=== PATIENT | male | born 1975 | race Caucasian/White ===

== ENCOUNTER 2020-04-22 09:51 | Outpatient (RCR) | payer OTHER, SELFPAY | END 2020-04-22 23:59 | disposition home or self-care (01) | LOC: ANHAUDIO 09:51 | PROVIDERS: PCP Family Medicine; Visit Provider Family Medicine | DX: Z46.1 Encounter for fitting and adjustment of hearing aid (principal) | CPT/HCPCS: 99199 ==

== ENCOUNTER 2023-02-06 11:38 | Emergency (ER) | payer MEDICARE, MEDICAID, SELFPAY ==
[2023-02-06] VITALS (65 sets, daily range): BP systolic 74–118; BP diastolic 48–100; PULSE 85–115; RESP 14–26; TEMP 36.3; O2SAT 91–100
--- NOTE | ~2023-02-06 | XR_ITS ---
EXAMINATION: XR chest port-a-cath/central Exam Date/Time: 02/06/2023 14:55 CDT HISTORY: status post CENTRAL line placement. Comparison: 10/22/2010 Right IJ central line terminating in the SVC. RESULT: Lines, tubes, and devices: None. Lungs and pleura: Clear. Cardiomediastinal silhouette: Stable. Other: No acute osseous or upper abdominal finding. IMPRESSION: No acute cardiopulmonary process. Reviewed, dictated and finalized at location K.
--- NOTE | ~2023-02-06 | CT_ITS ---
EXAMINATION: CT abdomen pelvis wo con DATE: 02/06/2023 15:25 INDICATION: Postoperative bleeding TECHNIQUE: Computed tomography (CT) of the abdomen and pelvis was performed without intravenous contr ast. Automated exposure control and iterative reconstruction technique were employed. The dose-length product was 1754.28 mGy-cm. COMPARISON: 01/22/2012 FINDINGS: Mild discoid atelectasis at the left lower lobe. Heart size is normal. No pericardial or pleural effu jeronimo. Cholecystectomy clips the gallbladder fossa. Liver, spleen, pancreas and bilateral adrenal glan ds are normal. Bilateral renal cysts the largest on the right measuring 6.3 cm . Bowels including the appendix are normal. Bladder is normal. No free intraperitoneal gas or fluid. No pathologically enla rged abdominal or pelvic lymphadenopathy. Postoperative changes along the anterior lower abdominal wa ll. There are bilateral surgical drains extending from left to right and from right to left across th e operative bed. There is a large relatively high attenuation hematoma along with a few scattered foc i of subcutaneous gas situated in the deep subcutaneous tissues. This measures approximately 45 cm fr om right to left and measures up to 17 x 5.8 cm in maximal orthogonal dimensions measured on the sagi ttal images. The inferior vena cava and bilateral common iliac veins appear flattened consistent with hypovolemia. Mild to moderate thoracolumbar spondylosis. IMPRESSION: 1. Large hematoma extending along the deep lower anterior abdominal wall where there are couple surgi ronna drains and changes consistent with prior panniculectomy. 2. Flattening of the inferior vena cava and bilateral common iliac veins suggestive of secondary hypo volemia. Reviewed, dictated and finalized at location A. IMPRESSION: 1. Large hematoma extending along the deep lower anterior abdominal wall where there are couple surgical drains and changes consistent with prior panniculecto my. 2. Flattening of the inferior vena cava and bilateral common iliac veins sugges tive of secondary hypovolemia.
--- NOTE | 2023-02-06 11:52 | ECG_ITS ---
Measurements Intervals [place] Rate: 81 P: 46 NE: 132 QRS: 62 QRSD: 97 T: 52 QT: 340 QTc: 396 Interpretive Statements SINUS RHYTHM LOW QRS VOLTAGE IN PRECORDIAL LEADS [QRS DEFLECTION < 1.0 mV IN CHEST LEADS] NO PREVIOUS ECG AVAILABLE FOR COMPARISON Electronically Signed On 02-06-2023 19:30:22 CDT by Janett Jacobo M.D.
--- NOTE | 2023-02-06 11:52 | ED.GENADULT ---
HPI - General Adult General Chief complaint: Wound/Laceration Stated complaint: wound check/surgical Time Seen by Provider: 02/06/23 11:52 Source: patient Mode of arrival: ambulatory History of Present Illness HPI narrative: 47-year-old male with a history of hypertension, dyslipidemia, obesity had anterior abdominal wall panniculectomy at [facility] yesterday. Subsequently the patient has been having -- syncopal spells -- increased bleeding from the incision site in the anterior abdominal wall. -- Generalized weakness -- patient was noted to be hypotensive with systolic blood pressure in the 80s as per EMS. In the ER his blood pressure was noted to be 94/50. Onset (ago): day(s) ( syncopal spell started yesterday.) Associated symptoms: denies other symptoms, syncope and weakness Related Data Home Medications Medication Instructions Recorded Confirmed allopurinol 300 mg tablet 150 mg PO HS 02/06/23 02/06/23 allopurinol 300 mg tablet 300 mg PO DAILY 02/06/23 02/06/23 atorvastatin 80 mg tablet 80 mg PO HS 02/06/23 02/06/23 bupropion HCl 300 mg 24 hr tablet, 300 mg PO DAILY 02/06/23 02/06/23 extended release cholecalciferol (vitamin D3) 50 50 mcg PO DAILY 02/06/23 02/06/23 mcg (2,000 unit) tablet cyanocobalamin (vitamin B-12) 2,000 mcg PO DAILY 02/06/23 02/06/23 2,000 mcg tablet cyclobenzaprine 10 mg tablet 10 mg PO TID 02/06/23 02/06/23 duloxetine 60 mg capsule,delayed 80 mg PO DAILY 02/06/23 02/06/23 release furosemide 40 mg tablet 40 mg PO DAILY 02/06/23 02/06/23 gabapentin 600 mg tablet 1,200 mg PO BID 02/06/23 02/06/23 naproxen 500 mg tablet 500 mg PO BID 02/06/23 02/06/23 pantoprazole 40 mg tablet,delayed 80 mg PO DAILY 02/06/23 02/06/23 release topiramate 200 mg tablet 200 mg PO HS 02/06/23 02/06/23 Allergies Allergy/AdvReac Type Severity Reaction Status Date / Time HYDROCODONE BIT Allergy Unknown Uncoded 02/06/23 12:30 TRAMADOL HCL Allergy makes him Uncoded 02/06/23 12:30 mean Review of Systems Review of Systems: All systems reviewed & are unremarkable except as noted in HPI and below Constitutional: Constitutional: Reports as per HPI and Reports no additional constitutional complaints Eyes: Eyes: Reports as per HPI and Reports no additional eye complaints ENT: Reports system reviewed and no additional complaints, except as documented and Reports as per HPI Comments: Dry mucous membrane Cardiovascular: Cardiovascular: Reports as per HPI Respiratory: Respiratory: Reports as per HPI and Reports no additional respiratory complaints Gastrointestinal: Gastrointestinal: Reports as per HPI and Reports no additional gastrointestinal complaints Comments: bleeding from the edges of the wound in the anterior abdominal wall. Genitourinary: Genitourinary: Reports no additional male genitourinary complaints Musculoskeletal: Musculoskeletal: Reports no additional musculoskeletal complaints and Reports as per HPI Integumentary/Breasts: Skin/Breast: Reports system reviewed and no additional complaints, except as docu and Reports as per HPI Neurologic: Reports system reviewed and no additional complaints, except as documented and Reports as per HPI Psychiatric: Psychiatric: Reports no additional psychiatric complaints and Reports as per HPI Endocrine: Endocrine: Reports no additional endocrine complaints and Reports as per HPI Hematologic/Lymphatic: Hematologic/Lymphatic: Reports no additional hematologic/lymphatic complaints and Reports as per HPI Allergic/Immunologic: Allergic/Immunologic: Reports no additional allergic/immunologic complaints and Reports as per HPI PMF Past Medical History Medical History (Updated 02/06/23 @ 15:09 by Alden Ferris MD) Dyslipidemia Hypertension Obesity Surgical History Surgical History (Updated 02/06/23 @ 15:09 by Alden Ferris MD) S/P panniculectomy Exam Narrative: blood pressure is 94/50. Const: Ge
[2023-02-06] MEDS: LACTATED RINGERS 1,000 ML 999 ML IV CONT ×2 (12:34→12:48)
[2023-02-06 12:38] LABS: Alanine Aminotransferase 31 U/L (16-63); Alkaline Phosphatase 67 U/L (46-116); Anion Gap 11 mmol/L (8-16); Aspartate Amino Transferase 19 U/L (15-37); Bilirubin,Total 0.3 mg/dL (0.00-1.00); Blood Urea Nitrogen 23 mg/dL (7-18); Calcium 7.8 mg/dL (8.5-10.1); Carbon Dioxide 18 mmol/L (21-32); Chloride 106 mmol/L (98-108); Estimated Glomerular Filt Rate 33; Glucose 211 mg/dL (70-99); Lipase 28 U/L (16-77); Osmolality Calculated 289 mOsm/kg (285-295); Sodium 135 mmol/L (136-145); Total Protein 5.4 g/dL (6.4-8.2)
[2023-02-06 12:39] LABS: Magnesium 2.1 mg/dL (1.8-2.4); Troponin I 28.2 ng/L (0.00-60.4)
[2023-02-06 12:52] LABS: Hematocrit 26.8 % (40.0-54.0); Hemoglobin 8.8 g/dL (14.0-18.0); Mean Corpuscular HGB Conc 32.8 g/dL (32.0-36.0); Mean Corpuscular Hemoglobin 30.7 pg (27.0-31.0); Mean Corpuscular Volume 93.4 fL (78.0-102.0); Platelet Count Result 276 K/mm3 (150-420); Red Blood Count 2.87 M/mm3 (4.70-6.10); Red Cell Distribution Width 13.7 % (11.6-14.4)
[2023-02-06 13:07] LABS: Partial Thromboplastin Time 26.7 SEC (23.90-30.70); Prothrombin Time 10.5 Seconds (9.50-12.10)
[2023-02-06 13:10] LABS: Band Neutrophils Percent 3 % (0-6); Basophils Percent Manual 0 % (0-1); Eosinophils Absolute Manual 0.25 K/mm3 (0.02-0.5); Eosinophils Percent Manual 1 % (1-6); Lymphocytes Absolute Manual 2.25 K/mm3 (1.1-4.5); Lymphocytes Percent Manual 9 % (18-44); Metamyelocytes Percent 0 %; Monocytes Percent Manual 6 % (3-9); Myelocytes Percent 0 %; Neutrophils Percent Manual 81 % (46-73); Platelet Estimate Adequate (Adequate); Total Cells Counted 100
[2023-02-06 13:11] LABS: Lactic Acid Reflex 3.4 mmol/L (0.4-2.0)
[2023-02-06] MEDS: LACTATED RINGERS 1,000 ML 150 ML IV CONT (14:12)
--- NOTE | 2023-02-06 14:53 | PC.NURSE ---
1445 pt set up for central line placement consent signed and doctor explained procedure to pt [address] successfully cxr for placement completed
[2023-02-06] MEDS: CEFEPIME 2 GM/NS 50 ML 2 GM/50 ML BAG IVPB (15:31)
[2023-02-06] MEDS: PROCHLORPERAZINE EDISYLATE 10 MG/2 ML VIAL IV PUSH (15:47)
[2023-02-06 15:48] LABS: Reflex Lactic Acid Yes or No Add Lactic
[2023-02-06 19:36] LABS: Hematocrit 24.8 % (40.0-54.0); Hemoglobin 8.2 g/dL (14.0-18.0); Mean Corpuscular HGB Conc 33.1 g/dL (32.0-36.0); Mean Corpuscular Hemoglobin 30.5 pg (27.0-31.0); Mean Corpuscular Volume 92.2 fL (78.0-102.0); Mean Platelet Volume 8.8 fl (8.7-11.0); Platelet Count Result 265 K/mm3 (150-420); Red Blood Count 2.69 M/mm3 (4.70-6.10); Red Cell Distribution Width 13.6 % (11.6-14.4)
[2023-02-06 19:40] LABS: White Blood Count 24.8 K/mm3 (4.8-10.8)
[2023-02-06 19:45] LABS: Anion Gap 8 mmol/L (8-16); Blood Urea Nitrogen 24 mg/dL (7-18); Carbon Dioxide 25 mmol/L (21-32); Chloride 106 mmol/L (98-108); Estimated CRCL calculation 78 ml/min; Estimated Glomerular Filt Rate 45; Glucose 121 mg/dL (70-99); Osmolality Calculated 293 mOsm/kg (285-295); Potassium 4.1 mmol/L (3.5-5.1); Sodium 139 mmol/L (136-145)
[2023-02-06 19:51] LABS: Band Neutrophils Percent 1 % (0-6); Basophils Percent Manual 0 % (0-1); Eosinophils Percent Manual 0 % (1-6); Lymphocytes Absolute Manual 4.21 K/mm3 (1.1-4.5); Lymphocytes Percent Manual 17 % (18-44); Metamyelocytes Percent 1 %; Monocytes Absolute Manual 1.73 K/mm3 (0.1-0.90); Monocytes Percent Manual 7 % (3-9); Neutrophils Percent Manual 74 % (46-73); Total Cells Counted 100
[2023-02-06 19:52] LABS: Platelet Estimate Adequate (Adequate)
--- NOTE | 2023-02-06 20:44 | PC.NURSE ---
20:30 [facility] called back about EMS not getting pages, asked to try again. 20:42 this RN called [facility] back about update as this is a stat transfer, was told the other crew was out on a call, now awaiting crew to get to facility to take patient to [facility].
--- NOTE | 2023-02-07 08:40 | PC.NURSE ---
On 02/06/23, the student, [baudilio rodgers ], provided care and completed [facility] documentation on this patient. I have reviewed the student's documentation and agree with the findings.
--- NOTE | 2023-02-12 12:26 | PC.NURSE ---
FINAL BLOOD CULTURE REPORT: NO GROWTH AFTER 5 DAYS, NO FURTHER ACTION OR TREATMENT NEEDED.
== END 2023-02-06 21:27 | disposition short-term general hospital (02) ==
PROVIDERS: Emergency Provider Internal Medicine Critical Care Medicine; PCP Family Medicine
DX: N17.9 Acute kidney failure, unspecified (principal); R57.1 Hypovolemic shock; R73.9 Hyperglycemia, unspecified; Z98.890 Other specified postprocedural states; D64.9 Anemia, unspecified; I10 Essential (primary) hypertension; E78.5 Hyperlipidemia, unspecified; E66.01 Morbid (severe) obesity due to excess calories; Z68.42 Body mass index [BMI] 45.0-49.9, adult
CPT/HCPCS: 36415; 36556; 74176; 80048; 80053; 83605; 83690; 83735; 84484; 85025; 85610; 85730; 86850; 86900; 86901; 87040; 93005; 96361; 96365; 96366; 96368; 96375; 99285; C1751; J0692; J0780; J3370; J7120